=== PATIENT | female | born 1970 | race Caucasian/White ===

== ENCOUNTER 2018-06-08 20:31 | Emergency (ER) | payer OTHER ==
[2018-06-08 20:59] VITALS: TEMP 98.3; BMI 24.6
--- NOTE | 2018-06-08 20:59 | PDOC ---
Rapid Medical Evaluation Chief Complaint: Lightheaded Time Seen by Provider: 06/08/18 20:55 Medical Evaluation: 06/08/18 20:55 I performed a brief in person evaluation. CC: Dizziness HPI: Pt is a 47 Yo female with a hx of MS who has had dizziness x 1 week. PE: Skin: Clear Lungs: Clear Heart: RRR MS: Moves all extremities without difficulty Neuro: Alert Psych: Appropriate affect Pt will go to main ED for further evaluation. Discharge Disposition - Diagnosis Dizziness - Referrals Referrals: Damaris Mujica [Primary Care Provider] - - Patient Instructions - Post Discharge Activity
[2018-06-08 21:57] VITALS: BP 133/91; PULSE 83
--- NOTE | 2018-06-08 22:11 | PDOC ---
History of Present Illness - General History Source: Patient Exam Limitations: No Limitations - History of Present Illness Initial Comments: 06/08/18 22:24 The patient is a 47 year old female, with a significant past medical history of MS, who presents to the emergency department with, 1 week of increased weakness , confusion, and fatigue. Patient notes that for the past week it has been hard for her to get out of bed in the morning secondary to increased fatigue. She denies any pain. She denies recent fevers, chills, headache or dizziness. She denies recent nausea, vomit, diarrhea or constipation. She denies recent dysuria, frequency, urgency or hematuria. She denies recent chest pain or shortness of breath. Allergies: NKDA Past surgical history: None reported. Social history: Nonsmoker. Denies EtOH use and recreational drug use. Primary Care Physician: Dr. Wallace ([place]) <Viviana Salvador - Last Filed: 06/08/18 22:24> <Airam Rodriguez - Last Filed: 06/09/18 01:02> - General Chief Complaint: Lightheaded Stated Complaint: PAIN DUE TO MS Time Seen by Provider: 06/08/18 20:55 Past History <Viviana Salvador - Last Filed: 06/08/18 22:24> - Past Medical History COPD: No Other medical history: MS - Suicide/Smoking/Psychosocial Hx Smoking History: Never smoked Have you smoked in the past 12 months: No Information on smoking cessation initiated: No Hx Alcohol Use: No Drug/Substance Use Hx: No <Airam Rodriguez - Last Filed: 06/09/18 01:02> - Past Medical History Allergies/Adverse Reactions: Allergies Allergy/AdvReac Type Severity Reaction Status Date / Time No Known Allergies Allergy Verified 06/08/18 20:59 Home Medications: Ambulatory Orders Ocrelizumab [Ocrevus] 300 mg IV ASDIR 06/08/18 Review of Systems - Review of Systems Able to Perform ROS?: Yes Comments:: 06/08/18 22:24 CONSTITUTIONAL: Present: Fatigue, weakness. Absent: fever, no chills EYES: Absent: visual changes ENT: Absent: ear pain, no sore throat CARDIOVASCULAR: Absent: chest pain, no palpitations RESPIRATORY: Absent: cough, no SOB GI: Absent: abdominal pain, no nausea, no vomiting, no constipation, no diarrhea GENITOURINARY: Absent: dysuria, no frequency, no hematuria MUSKULOSKELETAL: Absent: back pain, no arthralgia, no myalgia SKIN: Absent: rash NEURO: Present: Confusion. Absent: headache All Other Systems: Reviewed and Negative <Viviana Salvador - Last Filed: 06/08/18 22:24> *Physical Exam - Vital Signs Last Vital Signs Temp Pulse Resp BP Pulse Ox 98.3 F 83 18 133/91 100 06/08/18 20:56 06/08/18 21:56 06/08/18 21:56 06/08/18 21:56 06/08/18 21:56 - Physical Exam Comments: 06/08/18 22:25 GENERAL: Well-appearing, well-nourished. No apparent distress. HEENT: Normocephalic, atraumatic. PERRL, EOM intact. CARDIOVASCULAR: Normal S1, S2. Regular rate and rhythm. PULMONARY: Clear to auscultation bilaterally. ABDOMEN: Soft, non-distended, non-tender. EXTREMITIES: Normal ROM in all four extremities. No gross deformities. SKIN: Warm, dry. No rash NEUROLOGICAL: No focal neurological deficits. <Viviana Salvador - Last Filed: 06/08/18 22:24> - Vital Signs Last Vital Signs Temp Pulse Resp BP Pulse Ox 98.3 F 83 18 133/91 100 06/08/18 20:56 06/08/18 21:56 06/08/18 21:56 06/08/18 21:56 06/08/18 21:56 <Airam Rodriguez - Last Filed: 06/09/18 01:02> Moderate Sedation - Procedure Monitoring Vital Signs: Procedure Monitoring Vital Signs Temperature 98.3 F 06/08/18 20:56 Pulse Rate 83 06/08/18 21:56 Respiratory Rate 18 06/08/18 21:56 Blood Pressure 133/91 06/08/18 21:56 O2 Sat by Pulse Oximetry (%) 100 06/08/18 21:56 <Viviana Salvador - Last Filed: 06/08/18 22:24> - Procedure Monitoring Vital Signs: Procedure Monitoring Vital Signs Temperature 98.3 F 06/08/18 20:56 Pulse Rate 83 06/08/18 21:56 Respiratory Rate 18 06/08/18 21:56 Blood Pressure 133/91 06/08/18 21:56 O2 Sat by Pulse Oximetry (%) 100 06/08/18 21:56 <Airam Rodriguez - Last Filed: 06/09/18 01:02> ED Treatment Course - LABORATORY CBC & Chemistry Diagram: 06/08/18 22:30 06/08/18 22:30 <Airam Rodriguez - Last Filed: 06/09/18 01:02> Medical Decision Making - Medical Decision Making 06/08/18 22:09 Alert and conversant 47-year-old female diagnosed with multiple sclerosis 22 years ago, presents with a complaint of generalized weakness for the past week. She denies fever or chills or nausea or vomiting or diarrhea or cough Past medical history MS Past surgical history C-sections 2. Social history denies any alcohol or tobacco use Triage stated that she had dizziness and pain, but during my questioning her, she denied any pain Meds : once every 6 months <Airam Rodriguez - Last Filed: 06/09/18 01:02> *DC/Admit/Observation/Transfer - Attestations Scribe Attestion: 06/08/18 22:25 Documentation prepared by Viviana Salvador, acting as durable medical equipment repairer for Airam Rodriguez MD. <Viviana Salvador - Last Filed: 06/08/18 22:24> <Airam Rodriguez - Last Filed: 06/09/18 01:02> Diagnosis at time of Disposition: Malaise and fatigue, Multiple sclerosis - Discharge Dispostion Disposition: HOME Condition at time of disposition: Stable - Referrals Referrals: Damaris Mujica [Primary Care Provider] - - Patient Instructions Printed Discharge Instructions: DI for Fatigue, DI for Multiple Sclerosis Additional Instructions: please follow up with your physician Return for worsening symptoms - Post Discharge Activity
[2018-06-08 22:57] LABS: BASO % 0.7 % (0-2.0); EOS % 2.3 % (0-4.5); HEMATOCRIT 39.1 % (32.4-45.2); HEMOGLOBIN 13.6 GM/dL (10.7-15.3); LYMPH % 27.4 % (8-40); MCH 31.1 pg (25.7-33.7); MCHC 34.8 g/dl (32.0-36.0); MEAN CELL VOLUME 89.4 fl (80-96); MEAN PLT VOLUME 8.3 fl (7.5-11.1); MONO % 6.3 % (3.8-10.2); NEUT % 63.3 % (42.8-82.8); PLATELET COUNT 287 K/MM3 (134-434); RBC 4.38 M/mm3 (3.60-5.2); RDW 13.6 % (11.6-15.6); WHITE BLOOD COUNT 10.4 K/mm3 (4.0-10.0)
[2018-06-08 23:00] LABS: URINE APPEARANCE SLCLOUDY; URINE BILIRUBIN NEGATIVE (<2.0 mg/dL); URINE COLOR YELLOW; URINE GLUCOSE (UA) NEGATIVE (NEGATIVE); URINE KETONE TRACE (NEGATIVE); URINE LEUK ESTERASE NEGATIVE (NEGATIVE); URINE NITRITE NEGATIVE (NEGATIVE); URINE PROTEIN NEGATIVE (NEGATIVE); URINE UROBILINOGEN NEGATIVE mg/dL (0.2-1.0)
[2018-06-08 23:20] LABS: EPI CELLS FEW /HPF (FEW); URINE BACTERIA FEW /hpf (NONE SEEN); URINE MUCUS MANY
[2018-06-08 23:27] LABS: INR 1.03 (0.83-1.09); PROTHROMBIN TIME (PATIENT) 12.1 SEC (9.7-13.0)
[2018-06-08 23:31] LABS: ALBUMIN 4.1 g/dl (3.4-5.0); ALK PHOS 80 U/L (45-117); ANION GAP 7 MMOL/L (8-16); BILIRUBIN,TOTAL 0.4 mg/dL (0.2-1); BLOOD UREA NITROGEN 21 mg/dL (7-18); CALCIUM 9.4 mg/dL (8.5-10.1); CHLORIDE 103 mmol/L (98-107); CO2 28 mmol/L (21-32); CREATININE 0.7 mg/dL (0.55-1.3); GLUCOSE,RANDOM 104 mg/dL (74-106); SGOT/AST 16 U/L (15-37); SGPT/ALT 28 U/L (13-61); SODIUM 138 mmol/L (136-145); TOT PROT 7.4 g/dl (6.4-8.2)
--- NOTE | 2018-06-09 13:08 | EKG ---
Test Reason : Blood Pressure : / mmHG Vent. Rate : 086 BPM Atrial Rate : 086 BPM P-R Int : 146 ms QRS Dur : 090 ms QT Int : 348 ms P-R-T Axes : 056 008 022 degrees QTc Int : 416 ms POOR DATA QUALITY, INTERPRETATION MAY BE ADVERSELY AFFECTED NORMAL SINUS RHYTHM POSSIBLE LEFT ATRIAL ENLARGEMENT BORDERLINE ECG NO PREVIOUS ECGS AVAILABLE Confirmed by JIMENEZ SANCHEZ, JESSY ([id number]) on 06/09/2018 1:08:40 PM Referred By: Confirmed By:JESSY GAONA MD
== END 2018-06-09 01:21 | disposition home or self-care (01) ==
LOC: JER 20:31
DX: G35 Multiple sclerosis (principal)
CPT/HCPCS: 36415; 80053; 81003; 81015; 82550; 84484; 84703; 85025; 85610; 86850; 86900; 86901; 93005; 93010; 99282-25

== ENCOUNTER 2023-03-20 14:43 | Emergency (ER) | payer OTHER ==
[2023-03-20 14:49] VITALS: BMI 25.4
[2023-03-20] MEDS ORDERED: DIPHTH,PERTUSS(ACELL),TET 0.5 ML DISP.SYRIN IM ONE ×2 (15:36→16:09)
[2023-03-20 15:46] LABS: EPI CELLS 4 /uL (0-25.1); HYALINE CASTS 0 /uL (0-3.1); URINE APPEARANCE CLEAR; URINE BACTERIA >9,000 /uL (0-1359); URINE BILIRUBIN NEGATIVE (NEGATIVE); URINE COLOR YELLOW; URINE GLUCOSE (UA) NEGATIVE (NEGATIVE); URINE KETONE NEGATIVE (NEGATIVE); URINE LEUK ESTERASE TRACE (NEGATIVE); URINE NITRITE POSITIVE (NEGATIVE); URINE PROTEIN NEGATIVE (NEGATIVE); URINE RBC 15 /uL (0-23.9); URINE UROBILINOGEN 0.2 mg/dL (0.2-1.0); URINE WBC 11 /uL (0-25.8)
[2023-03-20 16:44] VITALS: BP 134/90; PULSE 81; RESP 16; TEMP 98
== END 2023-03-20 16:44 | disposition home or self-care (01) ==
LOC: JER 14:43
PROC: 0HQGXZZ Repair Left Hand Skin, External Approach (ICD-10-PCS; principal; 2023-03-20)
PROC: 3E0234Z Introduction of Serum, Toxoid and Vaccine into Muscle, Percutaneous Approach (ICD-10-PCS; 2023-03-20)
DX: S61.211A Laceration without foreign body of left index finger without damage to nail, initial encounter (principal); N39.0 Urinary tract infection, site not specified; W26.0XXA Contact with knife, initial encounter
CPT/HCPCS: 12002-25; 81003; 87086; 87186; 90471; 90715; 99283-25